=== PATIENT | male | born 1985 ===

== ENCOUNTER 2019-06-08 17:54 | Observation (INO) ==
[2019-06-08] MEDS ORDERED: VANCOMYCIN INJ 1,000 MG in SODIUM CHLORIDE 0.9% 250 ML IV STA (18:37)
[2019-06-08] MEDS ORDERED: PIPERACILLIN/TAZOBACTAM 3,375 MG in SODIUM CHLORIDE 0.9% 100 ML IV STA ×2 (18:37→18:53)
[2019-06-08] MEDS ORDERED: ONDANSETRON 4 MG/2 ML VIAL IV PRN (18:38)
[2019-06-08] MEDS ORDERED: ACETAMINOPHEN 325 MG TABLET PO PRN (18:38)
[2019-06-08] MEDS ORDERED: PIPERACILLIN/TAZOBACTAM 3,375 MG VIAL IV ONE (18:54)
[2019-06-08] MEDS ORDERED: SODIUM CHLORIDE 0.9% 100 ML IV ONE (18:54)
[2019-06-08] MEDS ORDERED: VANCOMYCIN INJ 2,000 MG in SODIUM CHLORIDE 0.9% 500 ML IV ONE ×2 (21:00→23:00)
[2019-06-08] MEDS: LACTATED RINGERS 1,000 ML IV SCH (22:52)
[2019-06-09] MEDS: PIPERACILLIN/TAZOBACTAM 3,375 MG in SODIUM CHLORIDE 0.9% 100 ML IV SCH ×3 (03:47→21:43)
[2019-06-09] MEDS: LACTATED RINGERS 1,000 ML IV SCH ×2 (03:50→14:43)
[2019-06-09] MEDS ORDERED: BUPIVACAINE MPF 0.25% 30 ML VIAL ONE (08:44)
[2019-06-09] MEDS ORDERED: HYDROmorphone 2 MG/1 ML VIAL IV PRN (09:09)
[2019-06-09] MEDS ORDERED: SEVOFLURANE 1 UNIT/15 MINUTE INH ONE (09:12)
[2019-06-09] MEDS ORDERED: propofoL 200 MG/20 ML VIAL IV ONE (09:12)
[2019-06-09] MEDS ORDERED: LIDOCAINE 2% 5 ML VIAL ONE (09:12)
[2019-06-09] MEDS ORDERED: MIDAZOLAM 2 MG/2 ML VIAL ONE (09:12)
[2019-06-09] MEDS ORDERED: fentaNYL 100 MCG/2 ML VIAL ONE (09:13)
[2019-06-09] MEDS ORDERED: ONDANSETRON 4 MG/2 ML VIAL ONE (09:13)
[2019-06-09] MEDS ORDERED: PHENYLEPHRINE 1 MG/10 ML SYRINGE IV ONE (09:13)
[2019-06-09 09:28] LABS: Basophils % 0.3 % (0.0-0.8); Eosinophils # 0.1 10*3/uL (0.0-0.87); Eosinophils % 0.7 % (0.00-10.9); Hematocrit 36.7 VOL% (42.0-52.0); Hemoglobin 11.6 GM/DL (14.0-18.0); Immature Granulocytes % 0.7 %; Immature Granulocytes Absolute 0.08 #; Lymphocytes # 1.1 10*3/uL (1.4-4.0); Lymphocytes % 9.4 % (21.2-54.2); Mean Corpuscular HGB Conc 31.6 GM/DL (32-36); Mean Corpuscular Volume 90.6 FL (87-102); Mean Platelet Volume 9.1 FL (9.6-12.0); Monocytes % 9.9 % (1.7-12.7); Platelet Count 319 T/CUMM (130-400); Red Blood Count 4.05 MC/CUMM (3.8-5.5); Red Cell Distribution Width 13.2 % (9.3-17.3); White Blood Count 11.5 T/CUMM (4-12)
[2019-06-09 09:57] LABS: Osmolality,Calculated 279.4 MOS/KG (273-304)
[2019-06-09] MEDS: PANTOPRAZOLE 40 MG TABLET PO SCH (10:20)
[2019-06-09] MEDS: POTASSIUM CHLORIDE RIDER 10 MEQ in PREMIX 1 EACH IV SCH ×4 (12:02→16:18)
[2019-06-09] MEDS: VANCOMYCIN INJ 1,250 MG in SODIUM CHLORIDE 0.9% 250 ML IV SCH (12:02)
[2019-06-10] MEDS: VANCOMYCIN INJ 1,250 MG in SODIUM CHLORIDE 0.9% 250 ML IV SCH (02:10)
[2019-06-10] MEDS: LACTATED RINGERS 1,000 ML IV SCH ×3 (02:16→12:58)
[2019-06-10] MEDS: PIPERACILLIN/TAZOBACTAM 3,375 MG in SODIUM CHLORIDE 0.9% 100 ML IV SCH (05:20)
[2019-06-10 06:01] LABS: Basophils % 0.3 % (0.0-0.8); Eosinophils # 0.2 10*3/uL (0.0-0.87); Hematocrit 37.6 VOL% (42.0-52.0); Hemoglobin 11.8 GM/DL (14.0-18.0); Immature Granulocytes % 0.5 %; Immature Granulocytes Absolute 0.04 #; Lymphocytes # 1.9 10*3/uL (1.4-4.0); Lymphocytes % 25.9 % (21.2-54.2); Mean Corpuscular HGB Conc 31.4 GM/DL (32-36); Mean Corpuscular Volume 91.9 FL (87-102); Mean Platelet Volume 9.5 FL (9.6-12.0); Monocytes % 11.9 % (1.7-12.7); Neutrophils % 59.4 % (38.7-73.9); Platelet Count 356 T/CUMM (130-400); Red Blood Count 4.09 MC/CUMM (3.8-5.5); Red Cell Distribution Width 13.2 % (9.3-17.3); White Blood Count 7.3 T/CUMM (4-12)
[2019-06-10 06:15] LABS: Calcium 8.2 MG/DL (8.5-10.1); Osmolality,Calculated 279.3 MOS/KG (273-304)
[2019-06-10] MEDS: PANTOPRAZOLE 40 MG TABLET PO SCH (09:18)
[2019-06-10 11:37] VITALS: BP 116/74
== END 2019-06-10 11:53 | disposition home or self-care (01) ==
LOC: N.ED 17:54 → N.EDINP 17:54 → N.3E 19:55
PROVIDERS: ADMIT Student in an Organized Health Care Education/Training Program; ATTEND Student in an Organized Health Care Education/Training Program